=== PATIENT | female | born 1980 | race Caucasian/White ===

== ENCOUNTER 2019-10-17 19:26 | Emergency (ER) | payer OTHER ==
[~2019-10-17] VITALS: Ht 167.6 cm; Wt 72.6 kg
[2019-10-17] MEDS ORDERED: CENTANY30 GM TOP (21:15)
[2019-10-17] MEDS ORDERED: ZANAFLEX4 MG PO (21:15)
[2019-10-17] MEDS ORDERED: BUTALB-APAP-CA1 EACH PO (21:15)
[2019-10-17 22:47] VITALS: BP 109/57
== END 2019-10-17 22:48 | disposition home or self-care (01) ==
LOC: M.ERS 19:26
DX: S06.0X1A Concussion with loss of consciousness of 30 minutes or less, initial encounter (principal); S01.112A Laceration without foreign body of left eyelid and periocular area, initial encounter; Z98.51 Tubal ligation status; W07.XXXA Fall from chair, initial encounter; Y93.89 Activity, other specified; Y92.89 Other specified places as the place of occurrence of the external cause; Y99.9 Unspecified external cause status

== ENCOUNTER 2020-02-08 18:23 | Emergency (ER) | payer OTHER ==
[~2020-02-08] VITALS: Ht 167.6 cm; Wt 81.7 kg
[~2020-02-08 18:23] MED LIST: BUTALB-APAP-CA1 EACH PO; CENTANY30 GM TOP; ZANAFLEX4 MG PO
[2020-02-08 19:17] LABS: ABSOLUTE BASOPHILS 0.1 thou/uL (0.0-0.2); ABSOLUTE EOSINOPHILS 0.2 thou/uL (0.0-0.7); ABSOLUTE LYMPHOCYTES 2.5 thou/uL (0.8-5.3); ABSOLUTE MONOCYTES 0.5 thou/uL (0.0-1.2); ABSOLUTE NEUTROPHILS 5.4 thou/uL (1.6-8.1); BASOPHILS 1.3 %; EOSINOPHILS 1.8 %; HEMOGLOBIN 10.1 gm/dL (12.0-15.0); MCH 22.7 pg (26.0-34.0); MCHC 30.6 g/dL (28.0-37.0); MONOCYTES 6.2 %; NUCLEATED RBCS 0 /100WBC; PLATELET COUNT* 353 thou/uL (150-400); POLYS 61.7 %; RBC 4.46 mil/uL (4.20-5.00); RDW-CV 18.8 % (10.5-14.5); WBC 8.8 thou/uL (4.0-11.0)
[2020-02-08 19:49] LABS: CALCIUM 8.7 mg/dL (8.5-10.1); CREATININE 0.9 mg/dL (0.6-1.3); POTASSIUM 3.6 mmol/L (3.5-5.1)
[2020-02-08 19:54] LABS: ALBUMIN 3.7 g/dL (3.4-5.0); TOTAL BILIRUBIN 0.1 mg/dL (<0.1-1.0); TOTAL PROTEIN 7.4 g/dL (6.4-8.2)
[2020-02-08 20:00] LABS: ANISOCYTOSIS 1+; HYPOCHROMASIA 2+; LARGE PLATELETS RARE; PLATELET ESTIMATE ADEQUATE
[2020-02-08 20:01] LABS: MICROCYTES 1+
[2020-02-08] MEDS ORDERED: PHENERGAN 25 MG25 M1 PO (20:10)
[2020-02-08] MEDS ORDERED: BUTALB-APAP-CA1 EACH PO (20:10)
[2020-02-08] MEDS ORDERED: NABUMETONE 750750 M1 PO (20:10)
[2020-02-08 21:02] LABS: INFLUENZA A ANTIGEN Negative (Negative); INFLUENZA B ANTIGEN Negative (Negative)
[2020-02-08 21:45] VITALS: BP 124/82
== END 2020-02-08 21:49 | disposition home or self-care (01) ==
LOC: M.ERS 18:23
PROVIDERS: Nurse Practitioner Family
DX: R51.9 Headache, unspecified (principal); Z20.828 Contact with and (suspected) exposure to other viral communicable diseases; R11.10 Vomiting, unspecified; Z98.51 Tubal ligation status

== ENCOUNTER → 2020-02-22 | Outpatient (CLI) | payer OTHER ==
[~2020-02-22] MED LIST changes: +NABUMETONE 750750 M1 PO; +PHENERGAN 25 MG25 M1 PO
== END ==
LOC: M.ULTRA 07:50 → M.RAD 08:30 → M.ULTRA 08:30
PROVIDERS: ATTEND Family Medicine
DX: N63.22 Unspecified lump in the left breast, upper inner quadrant (principal)

== ENCOUNTER → 2020-03-26 | Outpatient (CLI) | payer OTHER ==
[~2020-03-26] MED LIST changes: +FLONASE 0.05%50 MCG NARES; +IMITREX100 MG PO; +NEURONTIN300 MG PO; +NORTRIPTYLINE H50 M3 PO; +PHENERGAN 25 MG25 MG PO; +ZYRTEC10 M2 PO
== END | disposition home or self-care (01) ==
LOC: M.ULTRA 08:30 → M.RAD 03-29 15:15
PROVIDERS: ATTEND Surgery
DX: N60.92 Unspecified benign mammary dysplasia of left breast (principal); R92.2 Inconclusive mammogram; Z98.890 Other specified postprocedural states; Z79.899 Other long term (current) drug therapy; Z20.828 Contact with and (suspected) exposure to other viral communicable diseases; Z98.51 Tubal ligation status

== ENCOUNTER → 2020-03-29 | Day surgery (SDC) | payer OTHER ==
[2020-03-29 16:34] LABS: HEMATOCRIT 30.3 % (37.0-47.0); HEMOGLOBIN 9.1 gm/dL (12.0-15.0)
--- NOTE | 2020-04-01 09:10 | OP ---
[facility] [address] [place] [address] OPERATIVE REPORT Name: JOCELYNE HINDS Room: [facility]#: [id number] Admission: 03/29/20 Attend Phys: Jadyn Mejia DO Discharge: Date of : 78 Report #: [id number] THIS REPORT FOR: cc: Shan Batista Adam J DO ~ Brock, Christie M. DO DATE OF SERVICE: 03/29/2020 PREOPERATIVE DIAGNOSIS: Left breast atypical ductal hyperplasia. POSTOPERATIVE DIAGNOSIS: Left breast atypical ductal hyperplasia. FINDINGS: RFID tag in the left breast. SURGEON: Jadyn Mejia DO CO-SURGEON: Elpidio Maravilla, PGY-1 STAFFING CLERK: MS Micheal3 PROCEDURE PERFORMED: Left breast RFID tag-guided lumpectomy. ANESTHESIA: General LMA and local. ESTIMATED BLOOD LOSS: 3 mL. DRAINS: None. SPECIMENS: Left breast lumpectomy. COMPLICATIONS: None. CONDITION: Stable. DISPOSITION: PACU to home. HISTORY OF PRESENT ILLNESS: The patient is a very pleasant 39-year-old female who presented to my office with a change in her mammogram. She had undergone a biopsy, which showed atypical ductal hyperplasia. She was educated that this is a form of precancer and should be removed. She was then consented for a left breast tag-guided lumpectomy. Risks discussed included bleeding, infection, pain, scar formation, deformation of the breast, need for further surgery and risks of general anesthesia. The patient understood these risks and elected [place] [address] OPERATIVE REPORT Name: JOCELYNE HINDS Room: [facility].#: [id number] Admission: 03/29/20 Attend Phys: Jadyn Mejia DO Discharge: Date of : 78 Report #: [id number] DESCRIPTION OF PROCEDURE: Prior to our procedure, the patient presented to Radiology and underwent placement of a left breast RFID tag next to her previously deployed clip. She was then seen in preop where she underwent informed consent. She was taken to the operating room where she was laid supine on the operating room table. SCDs were placed to bilateral lower extremities. Ancef was given in the perioperative period. General LMA anesthesia was induced by Anesthesia without difficulty. The left breast was prepped and draped in a standard sterile fashion. Timeout was performed to verify patient and procedure. I began by localizing the tag with the [employer] probe. Anthony was made on the skin at our closest distance. This was near the areola, so a periareolar incision was marked out. A 10 mL of 0.5% Marcaine were injected in the area of the planned incision. Curvilinear periareolar incision was made with #15 blade. Cautery was used for hemostasis. Then, using a combination of blunt and cautery dissection, we dissected closer to the area of the tag. Once the probe indicated that we were about 1 cm away from the tag, a lumpectomy specimen was formed utilizing cautery. Specimen was removed from the breast and was again interrogated with the hologic probe indicating that we should have a good margin around the tag. Unfortunately, mammography was not available, but I felt conclusively that we had the tag secondary to the hologic probe. Specimen was marked in the superior and lateral directions with stitches indicating short superior and long lateral. Specimen was then handed off for permanent pathology and was placed on formalin. Our wound was irrigated. Hemostasis was achieved. Wound was then closed in a layered fashion using deep and superficial stitches of 3-0 Vicryl in an inverted interrupted fashion. Skin wound was closed with running 4-0 Monocryl. A total of 30 mL of 0.5% Marcaine were used to anesthetize the wound. Wound was then cleansed and covered with skin glue. The patient was then allowed to awaken from anesthesia, was extubated and transported to the recovery room with no further difficulties. Counts were correct x 2 at the conclusion of the case. <ELECTRONICALLY SIGNED> By: Jadyn Mejia DO 04/01/20 0910 1741 1759Chpepe Mejia DO /nt
--- NOTE | 2020-04-03 18:06 | PATH ---
[facility] [address] [place] [address] PATHOLOGY RPT PROCEDURE Name: JEANE HINDS Room: [facility] Joe.#: [id number] Admission: 03/29/20 Date of : 78 Discharge: Report #: [id number] Path Case #: [id number] [facility] Accession Number: [id number] . 01 Material submitted: . breast - LEFT BREAST MASS - SHORT SUPERIOR/ LONG LATERAL. Modifiers: left . 01 Clinical history: . DUCTAL HYPERPLASIA LEFT BREAST . 02 Diagnosis: Left breast mass: - Benign breast tissue with two small fibroadenomas including one immediately adjacent to prior biopsy site (associated with cylindrical marker with a clip), and no residual atypia. (CHRISTELLE:gucci; 04/03/2020) [facility] 04/03/2020 1659 Local . 02 Electronically signed: . Ramy Bautista MD, Pathologist NPI- [id number] . 01 Gross description: . The specimen is received in formalin, labeled "Jeane Hinds, left breast mass" and consists of an oriented 34 g lumpectomy specimen with a long suture lateral and short superior. It measures 4.7 cm S-I, 4.8 cm L-M, 3.1 cm A-P, and is inked as follows: superior-blue, inferior-green, medial-red, lateral-yellow, anterior-orange, and posterior-black. It is sectioned from medial to lateral into 11 slices revealing a circumscribed polanco mass in slices 8-11 measuring 1.3 x 1.0 cm that is to margins as follows: 0.1 cm anterior, 0.7 cm posterior, 0.9 cm superior, 1.5 cm inferior, greater than 2 cm medial, and 0.1 cm lateral. Present in slice 7 is a cylindrical marker with a clip in slice 9. The uninvolved parenchyma shows hemorrhage/biopsy changes and no additional masses or lesions. The specimen is representatively submitted as follows: . A1-A2: Slice 1 medial, perpendicular A3-A4: Slice 3 A5-A6: Slice 7 A7-A8: Slice 8 A9-A11: Slice 9 A12-A14: Slice 10 A15-A16: Slice 11 lateral, perpendicular . The specimen was collected at 5:25 PM on 03/29/2020 and placed in formalin at 5:31 PM. The cold ischemic time is 6 minutes and the total formalin fixation time is greater than 72 hours. (SDY; 04/02/2020) [place] [address] PATHOLOGY RPT PROCEDURE Name: JEANE HINDS Room: [facility]#: [id number] Admission: 03/29/20 Date of : 78 Discharge: Report #: [id number] Path Case #: [id number] SYU/SYU 04/03/2020 1658 Local . 02 Pathologist provided ICD-10: D24.2 . 02 CPT . 345712 Specimen Comment: A courtesy copy of this report has been sent to [phone], [phone] Specimen Comment: [phone] Specimen Comment: Report sent to / DR MORRIS Performed at: [id number] [facility] [address], [place] [id number] MD Wilfred Buitrago MD Phone: [phone] Performed at: 02 [facility] [address], [place], [place] [id number] MD Ramy Bautista MD Phone: [phone]
== END | disposition home or self-care (01) ==
LOC: M.SUR 07:03
PROVIDERS: ATTEND Surgery
DX: D24.2 Benign neoplasm of left breast (principal); Z98.890 Other specified postprocedural states; Z79.899 Other long term (current) drug therapy; Z98.51 Tubal ligation status

== ENCOUNTER → 2020-09-24 | Outpatient (CLI) | payer OTHER | LOC: M.RAD 09:01 | PROVIDERS: ATTEND Surgery | DX: N60.92 Unspecified benign mammary dysplasia of left breast (principal); Z98.890 Other specified postprocedural states; R92.8 Other abnormal and inconclusive findings on diagnostic imaging of breast ==

== ENCOUNTER 2020-11-09 10:01 | Emergency (ER) | payer OTHER ==
[~2020-11-09] VITALS: Ht 167.6 cm; Wt 79.4 kg
[2020-11-09 10:51] LABS: CALCIUM 8.6 mg/dL (8.5-10.1); CREATININE 0.7 mg/dL (0.6-1.3); POTASSIUM 3.9 mmol/L (3.5-5.1)
[2020-11-09 10:54] LABS: APTT 23.9 Seconds (25.0-31.3); PROTIME 10.4 Seconds (9.20-11.50)
[2020-11-09 11:06] LABS: ABSOLUTE BASOPHILS 0.1 thou/uL (0.0-0.2); ABSOLUTE EOSINOPHILS 0.1 thou/uL (0.0-0.7); ABSOLUTE LYMPHOCYTES 1.9 thou/uL (0.8-5.3); ABSOLUTE MONOCYTES 0.8 thou/uL (0.0-1.2); ABSOLUTE NEUTROPHILS 9.3 thou/uL (1.6-8.1); BASOPHILS 0.4 %; EOSINOPHILS 1.1 %; HEMATOCRIT 35.6 % (37.0-47.0); HEMOGLOBIN 10.6 gm/dL (12.0-15.0); LYMPHOCYTES 15.7 %; MCH 20.8 pg (26.0-34.0); MCHC 29.7 g/dL (28.0-37.0); MCV 70.3 fL (80.0-100.0); MONOCYTES 6.2 %; MPV 8.8 fl. (7.2-11.1); NUCLEATED RBCS 0 /100WBC; PLATELET COUNT* 291 thou/uL (150-400); POLYS 76.6 %; RBC 5.07 mil/uL (4.20-5.00); RDW-CV 19.5 % (10.5-14.5); WBC 12.2 thou/uL (4.0-11.0)
[2020-11-09 11:36] LABS: CLUMPED PLTS OCCASIONAL; PLATELET ESTIMATE ADEQUATE
[2020-11-09 11:37] LABS: ANISOCYTOSIS 1+; HYPOCHROMASIA 3+; MICROCYTES 2+
[2020-11-09 12:31] LABS: URINE BILIRUBIN NEGATIVE (Negative); URINE BLOOD NEGATIVE (Negative); URINE CLARITY CLEAR; URINE COLOR STRAW; URINE GLUCOSE-RANDOM NEGATIVE (Negative); URINE KETONES NEGATIVE (Negative); URINE LEUKOCYTES NEGATIVE (Negative); URINE NITRITE NEGATIVE (Negative); URINE PROTEIN NEGATIVE (Negative); URINE SPECIFIC GRAVITY <= 1.005 (1.005-1.030); URINE UROBILINOGEN 0.2 E.U./dl (0.2-1.0)
[2020-11-09 13:30] VITALS: BP 107/47
--- NOTE | 2020-11-11 13:57 | EKG ---
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 : 1980 Requested By: Luke Franco Order Number: [id number] MD: Rich Washington Measurements Intervals [place] Rate: 82 P: 62 MN: 119 QRS: 47 QRSD: 91 T: 47 QT: 397 QTc: 464 Interpretive Statements Sinus rhythm Borderline short MN interval RSR' in V1 or V2, probably normal variant No previous ECG available for comparison Electronically Signed On 11-11-2020 13:56:52 CDT by Rich Washington [email or web address] <ELECTRONICALLY SIGNED> By: Rich Washington MD, [facility] 11/11/20 1356 1232 1232 Rich Washington MD, [facility] /EPI
== END 2020-11-09 13:30 | disposition short-term general hospital (02) ==
LOC: M.ERS 10:01
PROVIDERS: Emergency Medicine
DX: I63.9 Cerebral infarction, unspecified (principal); Z20.822 Contact with and (suspected) exposure to COVID-19; Z98.51 Tubal ligation status